=== PATIENT | female | born 2000 | race Caucasian/White ===

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

== ENCOUNTER 2021-03-02 21:11 | Emergency (ER) | payer BC ==
[2021-03-02] MEDS ORDERED: Ondansetron ODT 4 MG TAB ONE (21:41)
[2021-03-02] MEDS ORDERED: Ibuprofen 800 MG TAB ONE (21:41)
[2021-03-02] MEDS ORDERED: Acetaminophen 325 MG TAB ONE (21:41)
== END 2021-03-02 22:45 | disposition home or self-care (01) ==
LOC: ERS 21:11
DX: U07.1 COVID-19 (principal)
CPT/HCPCS: 99282; Q0162

== ENCOUNTER 2022-02-02 07:30 | Emergency (ER) | payer BC ==
[2022-02-02] MEDS ORDERED: Prochlorperazine 10 MG/2 ML VIAL ONE (08:28)
[2022-02-02] MEDS ORDERED: diphenhydrAMINE 50 MG/ML VIAL ONE (08:28)
[2022-02-02] MEDS ORDERED: Acetaminophen 500 MG TAB ONE (08:28)
[2022-02-02] MEDS ORDERED: Ketorolac Tromethamine 30 MG/ML VIAL ONE (08:28)
[2022-02-02 09:25] LABS: SARS-CoV-2 NAA Rapid Test Not Detected (NotDetected)
== END 2022-02-02 09:36 | disposition home or self-care (01) ==
LOC: ERS 07:30
DX: R51.9 Headache, unspecified (principal); Z20.822 Contact with and (suspected) exposure to COVID-19
CPT/HCPCS: 96365; 96375; J0780; J1200; J1885

== ENCOUNTER 2024-01-04 15:56 | Emergency (ER) | payer BC ==
[2024-01-04 16:38] LABS: #Basophils 0.05 10x3/uL (0.0-0.2); %Basophils 0.4 % (0.0-1.0); %Lymphocytes 16.7 % (21.0-51.0); %Monocytes 7.6 % (0.0-10.0); Hematocrit 41.3 % (36.0-47.0); Hemoglobin 14.7 g/dL (12.0-16.0); Mean Corpuscular HGB CONC 35.6 g/dL (32.0-36.0); Mean Corpuscular Hemoglobin 31.7 pg (27.0-31.0); Platelet Count 283 10x3/uL (130-400); RBC Distribution Width 13.3 % (11.5-14.5); Red Blood Cell (RBC) Count 4.64 mill/uL (4.20-5.40)
[2024-01-04 16:51] LABS: ALT (SGPT) 18 U/L (8-55); AST (SGOT) 12 U/L (5-34); Albumin 4.2 g/dL (3.5-5.0); Alkaline Phosphatase 70 U/L (40-110); Anion Gap 15 mmol/L (10-20); BUN (Urea Nitrogen) 10 mg/dL (7.0-18.7); Bilirubin, Total 0.7 mg/dL (0.2-1.2); Calc. Creatinine Clearance 0 mL/min (70-130); Calcium 9.2 mg/dL (7.8-10.44); Carbon Dioxide 20 mmol/L (22-29); Chloride 105 mmol/L (98-107); Estimated GFR 127; Globulin 3.1 g/dL (2.4-3.5); Glucose 81 mg/dL (70-105); Potassium 3.6 mmol/L (3.5-5.1); Protein, Total 7.3 g/dL (6.0-8.3); Sodium 136 mmol/L (136-145)
[2024-01-04 17:14] LABS: Bilirubin Negative (Negative); Blood, Urine 3+ (Negative); CAUTI Indications for Culture Pregnancy; Clarity Clear (Clear); Glucose, Urine (Dipstick) Normal (Negative); Ketone, Urine 20 mg/dL (Negative); Leukocyte 25 Leu/uL (Negative); Nitrite Negative (Negative); Protein, Urine (Dipstick) 20 mg/dL (Neg-Trace); RBC/HPF Greater than 50 HPF (0-3); Specific Gravity, Urine 1.027 (1.002-1.036); Urobilinogen Normal mg/dL (Less than 2)
[2024-01-04 17:19] LABS: Bacteria/HPF Rare-Few HPF (None Seen)
[2024-01-04 17:21] LABS: Urine Culture Reflex Yes Yes
== END 2024-01-04 18:30 | disposition home or self-care (01) ==
LOC: ERS 15:56
DX: O03.4 Incomplete spontaneous abortion without complication (principal)
CPT/HCPCS: 36415; 76856; 80053; 81001; 84702; 85025; 86850; 86900; 86901; 87086